=== PATIENT | male | born 1935 | race Caucasian/White ===

== ENCOUNTER 2016-09-03 08:28 | Outpatient (CLI) | payer MEDICARE ==
[2016-09-03 08:52] LABS: #Basophils 0.1 thou/uL (0.0-0.2); #Eosinphils 0.3 thou/uL (0.0-0.7); #Monocytes 0.7 thou/uL (0.11-0.59); #Neutrophils 6.9 thou/uL (1.40-6.50); %Basophils 0.9 % (0.0-1.0); %Eosinophils 2.7 % (0.0-10.0); %Monocytes 6.7 % (0.0-10.0); %Neutrophils 62.7 % (42.0-75.0); Hemoglobin 14.6 g/dL (14.0-18.0); Mean Corpuscular HGB CONC 33.4 g/dL (32.0-36.0); Mean Corpuscular Hemoglobin 33.6 pg (27.0-31.0); Mean Corpuscular Volume 100.7 fl (80.0-94.0); Mean Platelet Volume 6.5 fL (7.4-10.4); Platelet Count 151 thou/uL (130-400); RBC Distribution Width 12.2 % (11.5-14.5); Red Blood Cell (RBC) Count 4.33 mill/uL (4.70-6.10)
[2016-09-03 09:03] LABS: Hemoglobin A1c 5.3 % (4.0-6.0)
[2016-09-03 09:18] LABS: ALT (SGPT) 43 U/L (8-55); AST (SGOT) 37 U/L (5-34); Alkaline Phosphatase 66 U/L (40-150); Anion Gap 14 mmol/L (10-20); BUN (Urea Nitrogen) 26 mg/dL (8.4-25.7); Bilirubin, Total 0.8 mg/dL (0.2-1.2); Calc. Creatinine Clearance 0 mL/min (70-130); Calcium 8.7 mg/dL (7.8-10.44); Carbon Dioxide 26 mmol/L (23-31); Cardiac Risk 2.3 (Less than 4.5); Chloride 108 mmol/L (98-107); Cholesterol 145 mg/dl (< 200 Desired); Estimated GFR-MDRD 74; Globulin 2.7 g/dL (2.4-3.5); Glucose 97 mg/dL (83-110); HDL Cholesterol 63 mg/dL (>60 Neg Risk); LDL Cholesterol, Calculated 56 mg/dL; Potassium 3.9 mmol/L (3.5-5.1); Protein, Total 6.7 g/dL (5.8-8.1); Sodium 144 mmol/L (136-145); Triglycerides 132 mg/dL (Less than 150)
== END 2016-09-03 08:29 | disposition home or self-care (01) ==
LOC: MADLAB 08:28
PROVIDERS: ATTEND Internal Medicine
DX: G45.9 Transient cerebral ischemic attack, unspecified (principal); R21 Rash and other nonspecific skin eruption
CPT/HCPCS: 36415; 80053; 80061; 83036; 85025; 85652

== ENCOUNTER 2017-03-20 20:57 | Emergency (ER) | payer MEDICARE ==
--- NOTE | 2017-03-20 21:46 | CT ---
EXAM: NONCONTRAST HEAD CT 03/20/17 HISTORY: Patient fell and was found down. Posttraumatic injury and pain. COMPARISON: None. TECHNIQUE: Noncontrast head CT is performed in the axial plane. Reformatted images are submitted for interpretat ion. FINDINGS: No parenchymal hemorrhage. No extra-axial hematoma. No midline shift. Basilar cisterns are patent. Age appropriate atrophy. Cortical coles-white matter differentiation is preserved. The ventricles and sulci are patent and symmetric. Chronic small vessel ischemic changes of the white matter are noted. Adequate aeration of the sinuses and mastoid air cells. Calvarium is intact. 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 IMPRESSION: 1. No intracranial posttraumatic sequela. 2. Age appropriate atrophy. 3. Chronic small vessel ischemic change of the white matter. POS: [facility]
[2017-03-20 21:48] LABS: #Basophils 0.1 thou/uL (0.0-0.2); #Eosinphils 0.2 thou/uL (0.0-0.7); #Lymphocytes 2.4 thou/uL (1.20-3.40); #Monocytes 0.5 thou/uL (0.11-0.59); %Basophils 1.4 % (0.0-1.0); %Eosinophils 3.1 % (0.0-10.0); %Lymphocytes 38.9 % (21.0-51.0); %Monocytes 8.4 % (0.0-10.0); %Neutrophils 48.2 % (42.0-75.0); Hemoglobin 12.6 g/dL (14.0-18.0); Mean Corpuscular HGB CONC 34.1 g/dL (32.0-36.0); Mean Corpuscular Hemoglobin 33.4 pg (27.0-31.0); Mean Corpuscular Volume 98.2 fl (80.0-94.0); Mean Platelet Volume 6.1 fL (7.4-10.4); Platelet Count 135 thou/uL (130-400); RBC Distribution Width 11.2 % (11.5-14.5); Red Blood Cell (RBC) Count 3.77 mill/uL (4.70-6.10); White Blood Cell (WBC) Count 6.2 thou/uL (4.8-10.8)
[2017-03-20 21:54] LABS: INR-International Normal Ratio 2.1; Prothrombin Time 24.6 SEC (12.0-14.7)
[2017-03-20 21:55] LABS: PTT 42.8 SEC (22.9-36.1)
[2017-03-20 22:05] LABS: CKMB 2.2 ng/mL (0-6.6); Troponin I Less than 0.010 ng/mL (< 0.028)
--- NOTE | 2017-03-20 22:08 | CT ---
EXAM: CT CERVICAL SPINE WITHOUT CONTRAST 03/20/17 HISTORY: Fall. Posttraumatic pain. COMPARISON: None. TECHNIQUE: CT cervical spine is performed without contrast. TECHNIQUE: CT cervical spine is performed without contrast. Reformatted images are submitted for interpretation. FINDINGS: No prevertebral soft tissue swelling. The visualized soft tissue neck structures are unremarkable. Th ere is a stent in the right internal carotid artery. Varying degrees of central canal stenosis and foraminal narrowing on the basis of degenerative change . Evaluation is limited by technique. Upper mediastinum and apices are unremarkable. There is appropriate alignment of the lateral masses of C1 and C2 as well as the intra-articular face ts. Odontoid process is intact. On the sagittal reformatted images, Mild straightening of the normal cervical lordosis. Grade I retro listhesis of C3 upon C4 likely on the basis of degenerative change. Mild facet hypertrophy is noted, throughout the cervical spine. Cervical spine vertebral body height is maintained. No fracture. IMPRESSION: No fracture. POS: [facility]
== END 2017-03-20 22:00 | disposition home or self-care (01) ==
LOC: MADERS 20:57
DX: S06.0X9A Concussion with loss of consciousness of unspecified duration, initial encounter (principal); E78.5 Hyperlipidemia, unspecified; I25.10 Atherosclerotic heart disease of native coronary artery without angina pectoris; I10 Essential (primary) hypertension; Z79.82 Long term (current) use of aspirin; Z79.899 Other long term (current) drug therapy; W01.10XA Fall on same level from slipping, tripping and stumbling with subsequent striking against unspecified object, initial encounter
CPT/HCPCS: 36415; 70450; 72125; 82553; 84484; 85025; 85610; 85730

== ENCOUNTER 2018-01-17 10:39 | Emergency (ER) | payer MEDICARE ==
[2018-01-17 11:51] LABS: #Basophils 0.1 thou/uL (0.0-0.2); #Eosinphils 0.2 thou/uL (0.0-0.7); #Lymphocytes 2.4 thou/uL (1.20-3.40); #Monocytes 0.7 thou/uL (0.11-0.59); %Basophils 0.7 % (0.0-1.0); %Eosinophils 1.6 % (0.0-10.0); %Lymphocytes 25.7 % (21.0-51.0); %Monocytes 7.9 % (0.0-10.0); %Neutrophils 64.1 % (42.0-75.0); Hemoglobin 14.3 g/dL (14.0-18.0); Mean Corpuscular HGB CONC 34.4 g/dL (32.0-36.0); Mean Corpuscular Hemoglobin 32.9 pg (27.0-31.0); Mean Corpuscular Volume 95.6 fL (78.0-98.0); Mean Platelet Volume 7.1 fL (7.4-10.4); Platelet Count 156 thou/uL (130-400); RBC Distribution Width 11.5 % (11.5-14.5); Red Blood Cell (RBC) Count 4.36 mill/uL (4.70-6.10); White Blood Cell (WBC) Count 9.3 thou/uL (4.8-10.8)
[2018-01-17 12:05] LABS: ALT (SGPT) 20 U/L (8-55); AST (SGOT) 23 U/L (5-34); Albumin 4.3 g/dL (3.4-4.8); Alkaline Phosphatase 76 U/L (40-150); Anion Gap 13 mmol/L (10-20); BUN (Urea Nitrogen) 18 mg/dL (8.4-25.7); Bilirubin, Total 0.6 mg/dL (0.2-1.2); CK (CPK) 216 U/L (30-200); Calc. Creatinine Clearance 0 mL/min (70-130); Calcium 9.1 mg/dL (7.8-10.44); Carbon Dioxide 25 mmol/L (23-31); Chloride 108 mmol/L (98-107); Estimated GFR-MDRD 69; Globulin 2.7 g/dL (2.4-3.5); Glucose 113 mg/dL (83-110); Potassium 4.1 mmol/L (3.5-5.1); Sodium 142 mmol/L (136-145)
[2018-01-17 12:07] LABS: CKMB 5.3 ng/mL (0-6.6); Troponin I Less than 0.010 ng/mL (< 0.028)
[2018-01-17] MEDS ORDERED: Morphine 4 MG/ML VIAL ONE (12:53)
[2018-01-17] MEDS ORDERED: Ondansetron PF 4 MG/2 ML Vial ONE (12:54)
--- NOTE | 2018-01-17 13:28 | CT ---
CT OF BRAIN PERFORMED WITHOUT CONTRAST ENHANCEMENT: HISTORY: Fall hitting head. COMPARISON: A 03/20/2017 study. FINDINGS: There is generalized ventricular and sulcal prominence. There is decreased attenuation in the perive ntricular white matter consistent with some chronic ischemic white matter change. There are no signs of intracerebral hemorrhage or extraaxial fluid collections. Mastoid air cells are clear. There is a small air fluid level within the left maxillary sinus. IMPRESSION: No acute intracranial abnormalities. POS: [facility]
--- NOTE | 2018-01-17 14:03 | RAD ---
AP PELVIS: HISTORY: Pelvic pain status post fall. FINDINGS: The top of the iliac crest is not included on this film. SI joints are symmetric. No diastasis of t he symphysis. 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 No fractures of the bony pelvic ring. IMPRESSION: No evidence of fracture. POS: [facility]
--- NOTE | 2018-01-17 14:27 | RAD ---
LEFT HIP 2 VIEWS: HISTORY: Injury, left hip pain. FINDINGS/IMPRESSION: Degenerative changes are present. No acute fracture or dislocation is identified. POS: [facility]
--- NOTE | 2018-01-17 14:33 | RAD ---
LEFT RIBS AND PA CHEST 4 VIEWS: HISTORY: Rib injury. FINDINGS: Heart size is within normal limits. A pacemaker is present. The lungs are clear of any infiltrative process. No pneumothorax identified. I do not visualize any acute rib fractures. IMPRESSION: No acute findings. POS: [facility]
== END 2018-01-17 16:15 | disposition short-term general hospital (02) ==
LOC: MADERS 10:39
DX: S70.02XA Contusion of left hip, initial encounter (principal); S20.212A Contusion of left front wall of thorax, initial encounter; R55 Syncope and collapse; Z79.01 Long term (current) use of anticoagulants; Z79.899 Other long term (current) drug therapy; W18.2XXA Fall in (into) shower or empty bathtub, initial encounter; Y92.002 Bathroom of unspecified non-institutional (private) residence as the place of occurrence of the external cause; Z79.82 Long term (current) use of aspirin
CPT/HCPCS: 70450; 72170; 80053; 82553; 84484; 85025; 93005; 96374; 96375; J2270; J2405

== ENCOUNTER 2018-07-11 08:16 | Emergency (ER) | payer MEDICARE ==
[2018-07-11] MEDS ORDERED: Cephalexin 500 MG CAP ONE (08:40)
[2018-07-11] MEDS ORDERED: Adacel (T-DAP) 0.5 ML SYRINGE ONE (08:40)
[2018-07-11] MEDS ORDERED: Lidocaine 1% w/Epinephrine 1:100K 20 ML VIAL ONE (08:40)
== END 2018-07-11 09:20 | disposition home or self-care (01) ==
LOC: MADERS 08:16
DX: S51.811A Laceration without foreign body of right forearm, initial encounter (principal); E78.00 Pure hypercholesterolemia, unspecified; I48.91 Unspecified atrial fibrillation; I25.10 Atherosclerotic heart disease of native coronary artery without angina pectoris; Z79.899 Other long term (current) drug therapy; Z79.01 Long term (current) use of anticoagulants; Z79.82 Long term (current) use of aspirin; W26.8XXA Contact with other sharp object(s), not elsewhere classified, initial encounter
CPT/HCPCS: 12002; 90471; 90715; J2001

== ENCOUNTER 2018-08-10 11:45 | Emergency (ER) | payer MEDICARE ==
--- NOTE | 2018-08-10 12:34 | RAD ---
LEFT KNEE 4 VIEWS: HISTORY: Fall, injury, left knee pain. FINDINGS/IMPRESSION: No acute fracture or dislocation is identified. POS: [facility]
[2018-08-10] MEDS ORDERED: HYDROcodone/Acetaminophen 5/325 mg Tablet ONE (13:20)
[2018-08-10] MEDS ORDERED: Acetaminophen 325 MG TAB ONE (13:20)
== END 2018-08-10 13:45 | disposition home or self-care (01) ==
LOC: MADERS 11:45
DX: S86.812A Strain of other muscle(s) and tendon(s) at lower leg level, left leg, initial encounter (principal); Z79.01 Long term (current) use of anticoagulants; Z79.82 Long term (current) use of aspirin; Z79.899 Other long term (current) drug therapy; Z79.1 Long term (current) use of non-steroidal anti-inflammatories (NSAID); W18.30XA Fall on same level, unspecified, initial encounter

== ENCOUNTER 2019-10-30 11:54 | Emergency (ER) | payer MEDICARE ==
[~2019-10-30 11:54] MED LIST: Sodium Chloride 0.9% 1,000 ML BAG ONE
--- NOTE | 2019-10-30 12:48 | RAD ---
Exam: Chest one view HISTORY:Fever Comparison: 10/15/2015 FINDINGS: Cardiac silhouette:Upper normal cardiac silhouette. Stable left-sided transvenous pacemaker. Limited evaluation of lead position due to under penetration Aorta: Atherosclerosis Pulmonary vessels: Slightly prominent Costophrenic angles: Clear LUNGS: Diminished lung volumes due to poor inspiratory effort. Accentuation the parenchyma may be due to hypoventilation. Edema or infiltrate cannot be excluded. Pneumothorax: None Osseous abnormalities: None IMPRESSION: As above
[2019-10-30 12:58] LABS: CRP (Inflammatory) 12.66 mg/dL (= or < 0.5)
[2019-10-30 13:00] LABS: ALT (SGPT) 15 U/L (8-55); AST (SGOT) 35 U/L (5-34); Albumin 3.8 g/dL (3.4-4.8); Alkaline Phosphatase 65 U/L (40-110); Anion Gap 17 mmol/L (10-20); BUN (Urea Nitrogen) 28 mg/dL (8.4-25.7); Bilirubin, Total 0.8 mg/dL (0.2-1.2); Calc. Creatinine Clearance 0 mL/min (70-130); Calcium 8.2 mg/dL (7.8-10.44); Carbon Dioxide 22 mmol/L (23-31); Chloride 104 mmol/L (98-107); Estimated GFR-MDRD 59; Globulin 2.8 g/dL (2.4-3.5); Glucose 66 mg/dL (83-110); Potassium 3.8 mmol/L (3.5-5.1); Protein, Total 6.6 g/dL (5.8-8.1); Sodium 139 mmol/L (136-145)
[2019-10-30 13:03] LABS: Band 1 % (5-11); Hemoglobin 13.8 g/dL (14.0-18.0); Lymphocytes 10 % (21-51); MDiff Complete? YES; Mean Corpuscular HGB CONC 32.4 g/dL (32.0-36.0); Mean Corpuscular Hemoglobin 31.3 pg (27.0-31.0); Mean Corpuscular Volume 96.8 fL (78.0-98.0); Mean Platelet Volume 7.7 fL (7.4-10.4); Monocytes 3 % (0-10); Neutrophil 74 % (42-75); Platelet Count 150 thou/uL (130-400); Platelet Morphology Comment Appears Adequate; RBC Distribution Width 11.6 % (11.5-14.5); RBC Morphology Normal; Reactive Lymphocytes 12 % (0-10); White Blood Cell (WBC) Count 12.7 thou/uL (4.8-10.8)
--- NOTE | 2019-10-30 13:20 | CT ---
Exam: Head CT without contrast HISTORY: Fever. COMPARISON: 01/17/2018 FINDINGS: Hemorrhage: No intraparenchymal hemorrhage or extra-axial hematoma. Brain parenchyma: Cortical coles-white matter differentiation is preserved. No mass effect or midline shift. Basilar cisterns are patent.Chronic small vessel ischemic changes of the white matter Ventricular system: Ventricles and sulci are patent and symmetric. Calvarium: Intact. Sinuses and mastoid air cells: Minimal mucosal thickening of the ethmoid air cells IMPRESSION: No acute intracranial process.
[2019-10-30] MEDS ORDERED: Sodium Chloride 0.9% 100 ML ONE (13:40)
[2019-10-30] MEDS ORDERED: cefTRIAXone\\ROCEPHIN 2 GM VIAL ONE (13:40)
[2019-10-30 13:42] LABS: Bilirubin Negative (Negative); Blood, Urine Trace (Negative); Clarity Cloudy (Clear); Glucose, Urine (Dipstick) Negative (Negative); Ketone, Urine Negative (Negative); Leukocyte Moderate (Negative); Nitrite Negative (Negative); Protein, Urine (Dipstick) 100 mg/dL (Neg-Trace); Urobilinogen 0.2 mg/dL (Less than 2); pH, Urine 7.5 (5.0-9.0)
[2019-10-30 13:44] LABS: WBC/HPF Greater Than 50 HPF (0-3)
[2019-10-30 13:45] LABS: Bacteria/HPF 3+ HPF (None Seen); Squamous Epithelial 0-3 HPF (0-3); Triple Phosphate Crystal 3+ HPF (None Seen)
== END 2019-10-30 14:50 | disposition home or self-care (01) ==
LOC: MADERS 11:54
DX: N10 Acute pyelonephritis (principal); N13.9 Obstructive and reflux uropathy, unspecified; E78.5 Hyperlipidemia, unspecified; E78.00 Pure hypercholesterolemia, unspecified; Z86.73 Personal history of transient ischemic attack (TIA), and cerebral infarction without residual deficits; Z79.82 Long term (current) use of aspirin; Z79.899 Other long term (current) drug therapy
CPT/HCPCS: 70450; 71045; 80053; 81003; 81015; 82550; 83605; 85025; 86140; 87077; 87086; 87186; 93005; 96365; J0696; J3490; J7050

== ENCOUNTER 2020-12-21 14:02 | Emergency (ER) | payer MEDICARE ==
[2020-12-21] MEDS ORDERED: traMADol HCl 50 MG TAB ONE (15:07)
== END 2020-12-21 16:03 | disposition home or self-care (01) ==
LOC: MADERS 14:02
DX: S93.401A Sprain of unspecified ligament of right ankle, initial encounter (principal); M70.41 Prepatellar bursitis, right knee; E78.5 Hyperlipidemia, unspecified; E78.00 Pure hypercholesterolemia, unspecified; I25.10 Atherosclerotic heart disease of native coronary artery without angina pectoris; W19.XXXA Unspecified fall, initial encounter; Z79.82 Long term (current) use of aspirin; Z79.01 Long term (current) use of anticoagulants; Z79.899 Other long term (current) drug therapy; Z86.73 Personal history of transient ischemic attack (TIA), and cerebral infarction without residual deficits; Z86.79 Personal history of other diseases of the circulatory system

== ENCOUNTER 2021-08-20 17:19 | Emergency (ER) | payer MEDICARE ==
[~2021-08-20 17:19] MED LIST changes: +Iopamidol 370 76% 100 ML VIAL ONE; -Sodium Chloride 0.9% 1,000 ML BAG ONE
[2021-08-20 18:11] LABS: #Basophils 0.1 thou/uL (0.0-0.2); #Eosinphils 0.3 thou/uL (0.0-0.7); #Lymphocytes 2.5 thou/uL (1.20-3.40); #Monocytes 0.9 thou/uL (0.11-0.59); #Neutrophils 3.1 thou/uL (1.40-6.50); %Basophils 1.2 % (0.0-1.0); %Eosinophils 4.1 % (0.0-10.0); %Lymphocytes 36.5 % (21.0-51.0); %Neutrophils 45.2 % (42.0-75.0); Hemoglobin 13.5 g/dL (14.0-18.0); Mean Corpuscular HGB CONC 33.3 g/dL (32.0-36.0); Mean Corpuscular Hemoglobin 31.7 pg (27.0-31.0); Mean Corpuscular Volume 95.2 fL (78.0-98.0); Mean Platelet Volume 7.5 fL (7.4-10.4); Platelet Count 137 thou/uL (130-400); RBC Distribution Width 12.2 % (11.5-14.5); Red Blood Cell (RBC) Count 4.24 mill/uL (4.70-6.10); White Blood Cell (WBC) Count 6.9 thou/uL (4.8-10.8)
[2021-08-20 18:21] LABS: PTT 33.2 sec (22.9-36.1); Prothrombin Time 13.4 sec (12.0-14.7)
[2021-08-20 18:23] LABS: ALT (SGPT) 10 U/L (8-55); AST (SGOT) 14 U/L (5-34); Albumin 3.7 g/dL (3.4-4.8); Alkaline Phosphatase 70 U/L (40-110); Anion Gap 15 mmol/L (10-20); BUN (Urea Nitrogen) 17 mg/dL (8.4-25.7); Bilirubin, Total 0.5 mg/dL (0.2-1.2); Calc. Creatinine Clearance 0 mL/min (70-130); Calcium 8.7 mg/dL (7.8-10.44); Carbon Dioxide 25 mmol/L (23-31); Chloride 106 mmol/L (98-107); Globulin 2.7 g/dL (2.4-3.5); Glucose 94 mg/dL (83-110); Lipase 53 U/L (8-78); Magnesium 2.2 mg/dL (1.6-2.6); Potassium 3.8 mmol/L (3.5-5.1); Protein, Total 6.4 g/dL (5.8-8.1); Sodium 142 mmol/L (136-145)
[2021-08-20 18:24] LABS: D-Dimer Test 0.55 *mcg/mL (0.27-0.43)
[2021-08-20 18:25] LABS: CKMB 1.4 ng/mL (0-6.6)
[2021-08-20 21:20] LABS: Troponin I Less than 0.010 ng/mL (< 0.028)
[2021-08-20] MEDS ORDERED: Nitroglycerin 2% Ointment 1 INCH/1 GM Packet ONE ×2 (22:06→22:08)
[2021-08-20] MEDS ORDERED: Mag-Al Plus 1200 MG/1200 MG/120 MG/30 ML UDCUP ONE (22:06)
[2021-08-20] MEDS ORDERED: Lidocaine Viscous Sol 2% 15 ml UD Cup ONE (22:06)
[2021-08-21 00:43] LABS: Troponin I Less than 0.010 ng/mL (< 0.028)
== END 2021-08-21 08:02 | disposition short-term general hospital (02) ==
LOC: MADERS 17:19
DX: R07.2 Precordial pain (principal); R10.13 Epigastric pain; E78.5 Hyperlipidemia, unspecified; Z79.899 Other long term (current) drug therapy
CPT/HCPCS: 71045; 74177; 80053; 82553; 83690; 83735; 83880; 84484; 85025; 85379; 85610; 85730; 93005; Q9967

== ENCOUNTER 2022-04-01 07:33 | Emergency (ER) | payer MEDICARE ==
[2022-04-01] MEDS ORDERED: Acetaminophen 500 MG TAB ONE (09:02)
[2022-04-01 09:47] LABS: SARS-CoV-2 NAA Rapid Test DETECTED (NotDetected)
[2022-04-01] MEDS ORDERED: Dexamethasone 10 MG/ML VIAL ONE (10:09)
== END 2022-04-01 10:40 | disposition home or self-care (01) ==
LOC: MADERS 07:33
DX: U07.1 COVID-19 (principal); R42 Dizziness and giddiness; E78.00 Pure hypercholesterolemia, unspecified; Z86.73 Personal history of transient ischemic attack (TIA), and cerebral infarction without residual deficits; Z79.82 Long term (current) use of aspirin
CPT/HCPCS: 0241U; 71045; 87804 ×2; 96372; 99283; J1100

== ENCOUNTER 2022-05-03 08:56 | Emergency (ER) | payer MEDICARE ==
[2022-05-03] MEDS ORDERED: Iopamidol 370 76% 100 ML VIAL ONE (09:09)
[2022-05-03] MEDS ORDERED: Sodium Chloride 0.9% 1,000 ML ONE ×2 (09:39→09:40)
[2022-05-03] MEDS ORDERED: Pantoprazole 40 MG VIAL ONE (09:40)
[2022-05-03] MEDS ORDERED: Ondansetron PF 4 MG/2 ML Vial ONE ×2 (09:41→10:59)
[2022-05-03 10:22] LABS: #Basophils 0.1 thou/uL (0.0-0.2); #Eosinphils 0.1 thou/uL (0.0-0.7); #Lymphocytes 2.4 thou/uL (1.20-3.40); #Monocytes 1.3 thou/uL (0.11-0.59); #Neutrophils 12.6 thou/uL (1.40-6.50); %Basophils 0.5 % (0.0-1.0); %Eosinophils 0.5 % (0.0-10.0); %Lymphocytes 14.3 % (21.0-51.0); %Monocytes 8.1 % (0.0-10.0); %Neutrophils 76.7 % (42.0-75.0); Hemoglobin 15.6 g/dL (14.0-18.0); Mean Corpuscular Hemoglobin 33.1 pg (27.0-31.0); Mean Corpuscular Volume 94.4 fl (78.0-98.0); Mean Platelet Volume 7.6 fL (7.4-10.4); Platelet Count 170 10x3/uL (130-400); RBC Distribution Width 12.1 % (11.5-14.5); Red Blood Cell (RBC) Count 4.72 mill/uL (4.70-6.10); White Blood Cell (WBC) Count 16.4 10x3/uL (4.8-10.8)
[2022-05-03 10:39] LABS: ALT (SGPT) 7 U/L (8-55); AST (SGOT) 16 U/L (5-34); Albumin 4.4 g/dL (3.4-4.8); Alkaline Phosphatase 93 U/L (40-110); Anion Gap 15 mmol/L (10-20); BUN (Urea Nitrogen) 13 mg/dL (8.4-25.7); CK (CPK) 55 U/L (30-200); Calc. Creatinine Clearance 0 mL/min (70-130); Calcium 9.6 mg/dL (7.8-10.44); Carbon Dioxide 26 mmol/L (23-31); Chloride 102 mmol/L (98-107); Estimated GFR 74; Globulin 2.8 g/dL (2.4-3.5); Glucose 119 mg/dL (83-110); Lipase 33 U/L (8-78); Potassium 3.9 mmol/L (3.5-5.1); Protein, Total 7.2 g/dL (5.8-8.1); Sodium 139 mmol/L (136-145)
[2022-05-03] MEDS ORDERED: Morphine 4 MG/ML VIAL ONE (10:59)
[2022-05-03 11:02] LABS: Bilirubin Negative (Negative); Blood, Urine Negative (Negative); Clarity Cloudy (Clear); Glucose, Urine (Dipstick) Negative (Negative); Ketone, Urine Trace mg/dL (Negative); Leukocyte Small (Negative); Nitrite Negative (Negative); Protein, Urine (Dipstick) 30 mg/dL (Neg-Trace); Specific Gravity, Urine 1.025 (1.005-1.030); Urobilinogen 0.2 mg/dL (Less than 2)
[2022-05-03 11:03] LABS: Bacteria/HPF 2+ HPF (None Seen); RBC/HPF 0-3 HPF (0-3); Squamous Epithelial 0-3 HPF (0-3); WBC/HPF 21-50 HPF (0-3)
[2022-05-03] MEDS ORDERED: cefTRIAXone\\ROCEPHIN 1 GM VIAL ONE (11:35)
[2022-05-03] MEDS ORDERED: Sodium Chloride 0.9% 100 ML ONE (11:35)
[2022-05-03] MEDS ORDERED: cloNIDine 0.1mg/24 Hour PATCH ONE (11:50)
[2022-05-03] MEDS ORDERED: Bisacodyl 10 MG SUPP ONE (11:50)
[2022-05-03] MEDS ORDERED: cloNIDine 0.1 MG TAB ONE (11:51)
== END 2022-05-03 13:13 | disposition home or self-care (01) ==
LOC: MADERS 08:56
DX: K59.00 Constipation, unspecified (principal); I10 Essential (primary) hypertension; N39.0 Urinary tract infection, site not specified; D72.829 Elevated white blood cell count, unspecified; E78.00 Pure hypercholesterolemia, unspecified; Z86.73 Personal history of transient ischemic attack (TIA), and cerebral infarction without residual deficits; Z79.82 Long term (current) use of aspirin
CPT/HCPCS: 71045; 74177; 80053; 81003; 81015; 82274; 82550; 83690; 84443; 84484; 85025; 87086; 93005; 94760; 96361; 96374; 96375; 96376; C9113; J0696; J2270; J2405; J3490; J7050; Q9967

== ENCOUNTER 2022-11-24 14:23 | Emergency (ER) | payer MEDICARE ==
[2022-11-24 15:21] LABS: Bilirubin Negative (Negative); Blood, Urine Negative (Negative); Clarity Clear (Clear); Glucose, Urine (Dipstick) Negative (Negative); Ketone, Urine Negative (Negative); Leukocyte Negative (Negative); Nitrite Negative (Negative); Protein, Urine (Dipstick) Trace mg/dL (Neg-Trace); Specific Gravity, Urine 1.015 (1.005-1.030); Urobilinogen 0.2 mg/dL (Less than 2); pH, Urine 7.5 (5.0-9.0)
[2022-11-24 15:28] LABS: Bacteria/HPF Rare-Few HPF (None Seen); CAUTI Indications for Culture Dysuria,urgency,freq; RBC/HPF 0-3 HPF (0-3); Squamous Epithelial 0-3 HPF (0-3); Urine Culture Reflex No No; WBC/HPF None Seen HPF (0-3)
[2022-11-24 15:32] LABS: Amphetamine Not Detected (NotDetected); Barbiturates Screen Not Detected (NotDetected); Benzodiazepine Screen Not Detected (NotDetected); Cocaine Metabolite Screen Not Detected (NotDetected); Methadone Not Detected (NotDetected); Methamphetamine Not Detected (NotDetected); Opiate Screen Not Detected (NotDetected); Oxycodone Screen Not Detected (NotDetected); Phencyclidine (PCP) Not Detected (NotDetected); THC/Cannabinoid Screen Not Detected (NotDetected); Tricyclic Screen Not Detected (NotDetected)
[2022-11-24 15:34] LABS: ALT (SGPT) 15 U/L (8-55); AST (SGOT) 16 U/L (5-34); Acetaminophen Less than 10 mcg/mL (10.0-30.0); Alcohol Less than 10.0 mg/dL (Less than 10); Alkaline Phosphatase 96 U/L (40-110); Anion Gap 16 mmol/L (10-20); BUN (Urea Nitrogen) 24 mg/dL (8.4-25.7); Bilirubin, Total 0.2 mg/dL (0.2-1.2); Calc. Creatinine Clearance 0 mL/min (70-130); Calcium 9.1 mg/dL (7.8-10.44); Carbon Dioxide 29 mmol/L (23-31); Chloride 102 mmol/L (98-107); Estimated GFR 33; Glucose 108 mg/dL (83-110); Potassium 4.6 mmol/L (3.5-5.1); Salicylate Less than 8.0 mg/dL (15.0-30.0); Sodium 142 mmol/L (136-145)
[2022-11-24 15:43] LABS: #Basophils 0.1 thou/uL (0.0-0.2); #Eosinphils 0.3 thou/uL (0.0-0.7); #Monocytes 0.9 thou/uL (0.11-0.59); #Neutrophils 4.9 thou/uL (1.40-6.50); %Basophils 1.2 % (0.0-1.0); %Eosinophils 3.1 % (0.0-10.0); %Lymphocytes 25.1 % (21.0-51.0); %Monocytes 10.6 % (0.0-10.0); Hematocrit 31.3 % (42.0-52.0); Mean Corpuscular Hemoglobin 35.3 pg (27.0-31.0); Mean Corpuscular Volume 100.9 fl (78.0-98.0); Mean Platelet Volume 8.3 fL (7.4-10.4); Platelet Count 169 10x3/uL (130-400); RBC Distribution Width 12.8 % (11.5-14.5); White Blood Cell (WBC) Count 8.1 10x3/uL (4.8-10.8)
[2022-11-24 15:54] LABS: Macrocytosis SLIGHT = 6-15 cells (100X) (0-5/hpf)
== END 2022-11-24 20:31 ==
LOC: MADERS 14:23
DX: F43.21 Adjustment disorder with depressed mood (principal); F03.90 Unspecified dementia, unspecified severity, without behavioral disturbance, psychotic disturbance, mood disturbance, and anxiety; E78.00 Pure hypercholesterolemia, unspecified; Z79.899 Other long term (current) drug therapy
CPT/HCPCS: 80053; 80306; 80307; 81001; 84443; 85025; 93005

== ENCOUNTER 2022-12-19 01:01 | Emergency (ER) | payer MEDICARE ==
[2022-12-19 01:25] LABS: #Basophils 0.1 thou/uL (0.0-0.2); #Eosinphils 0.2 thou/uL (0.0-0.7); #Lymphocytes 2.3 thou/uL (1.20-3.40); #Monocytes 0.8 thou/uL (0.11-0.59); #Neutrophils 3.7 thou/uL (1.40-6.50); %Basophils 0.7 % (0.0-1.0); %Eosinophils 3.5 % (0.0-10.0); %Lymphocytes 32.1 % (21.0-51.0); %Monocytes 11.4 % (0.0-10.0); %Neutrophils 52.3 % (42.0-75.0); Hematocrit 30.8 % (42.0-52.0); Hemoglobin 10.6 g/dL (14.0-18.0); Mean Corpuscular HGB CONC 34.4 g/dL (32.0-36.0); Mean Corpuscular Hemoglobin 35.3 pg (27.0-31.0); Mean Corpuscular Volume 102.7 fl (78.0-98.0); Mean Platelet Volume 7.6 fL (7.4-10.4); Platelet Count 154 10x3/uL (130-400); RBC Distribution Width 12.4 % (11.5-14.5)
[2022-12-19 01:35] LABS: PTT 27.9 sec (22.9-36.1); Prothrombin Time 13.9 sec (12.0-14.7)
[2022-12-19 01:43] LABS: ALT (SGPT) 12 U/L (8-55); AST (SGOT) 14 U/L (5-34); Albumin 3.7 g/dL (3.4-4.8); Alkaline Phosphatase 80 U/L (40-110); Anion Gap 17 mmol/L (10-20); BUN (Urea Nitrogen) 31 mg/dL (8.4-25.7); Bilirubin, Total 0.3 mg/dL (0.2-1.2); Calc. Creatinine Clearance 0 mL/min (70-130); Calcium 8.7 mg/dL (7.8-10.44); Carbon Dioxide 25 mmol/L (23-31); Chloride 104 mmol/L (98-107); Estimated GFR 29; Globulin 2.6 g/dL (2.4-3.5); Glucose 95 mg/dL (83-110); Potassium 3.6 mmol/L (3.5-5.1); Protein, Total 6.3 g/dL (5.8-8.1); Sodium 142 mmol/L (136-145)
[2022-12-19] MEDS ORDERED: fentaNYL 50 mcg/mL 1 mL Vial ONE (01:58)
[2022-12-19 02:47] LABS: Bilirubin Negative (Negative); Blood, Urine Negative (Negative); Clarity Clear (Clear); Glucose, Urine (Dipstick) Negative (Negative); Ketone, Urine Negative (Negative); Leukocyte Negative (Negative); Nitrite Negative (Negative); Protein, Urine (Dipstick) Trace mg/dL (Neg-Trace); Specific Gravity, Urine 1.015 (1.005-1.030)
[2022-12-19 03:00] LABS: CAUTI Indications for Culture Acute Hematuria; RBC/HPF None Seen HPF (0-3); Squamous Epithelial 0-3 HPF (0-3); WBC/HPF None Seen HPF (0-3)
[2022-12-19 03:01] LABS: Urine Culture Reflex No No
[2022-12-19] MEDS ORDERED: Lactated Ringer's 1,000 ML ONE (03:49)
[2022-12-19 04:13] LABS: Troponin I Less than 0.010 ng/mL (< 0.028)
== END 2022-12-19 05:28 | disposition short-term general hospital (02) ==
LOC: MADERS 01:01
DX: S00.03XA Contusion of scalp, initial encounter (principal); R94.31 Abnormal electrocardiogram [ECG] [EKG]; R55 Syncope and collapse; I12.9 Hypertensive chronic kidney disease with stage 1 through stage 4 chronic kidney disease, or unspecified chronic kidney disease; N18.9 Chronic kidney disease, unspecified; E78.00 Pure hypercholesterolemia, unspecified; I48.91 Unspecified atrial fibrillation; E11.22 Type 2 diabetes mellitus with diabetic chronic kidney disease; Z79.82 Long term (current) use of aspirin; Z79.899 Other long term (current) drug therapy; W19.XXXA Unspecified fall, initial encounter
CPT/HCPCS: 36415; 70450; 71045; 72125; 72128; 74177; 80053; 81001; 84484; 85025; 85610; 85730; 93005; 94760; 96361; 96374; G0390; J3010; J7120

== ENCOUNTER 2023-02-02 20:45 | Emergency (ER) | payer MEDICARE, OTHER | END 2023-02-02 22:50 | LOC: MADERS 20:45 | DX: S00.03XA Contusion of scalp, initial encounter (principal); S70.01XA Contusion of right hip, initial encounter; I25.10 Atherosclerotic heart disease of native coronary artery without angina pectoris; E11.22 Type 2 diabetes mellitus with diabetic chronic kidney disease; I12.9 Hypertensive chronic kidney disease with stage 1 through stage 4 chronic kidney disease, or unspecified chronic kidney disease; N18.9 Chronic kidney disease, unspecified; N17.9 Acute kidney failure, unspecified; E78.00 Pure hypercholesterolemia, unspecified; Z79.899 Other long term (current) drug therapy; Z79.82 Long term (current) use of aspirin; W18.39XA Other fall on same level, initial encounter | CPT/HCPCS: 70450 ==

== ENCOUNTER 2023-02-26 22:15 | Emergency (ER) | payer MEDICARE, OTHER ==
[2023-02-26 23:23] LABS: Band 15 % (5-11); Hematocrit 38.1 % (42.0-52.0); Hemoglobin 13.1 g/dL (14.0-18.0); Lymphocytes 5 % (21-51); MDiff Complete? YES; Macrocytosis SLIGHT = 6-15 cells (100X) (0-5/hpf); Mean Corpuscular HGB CONC 34.3 g/dL (32.0-36.0); Mean Corpuscular Hemoglobin 36.2 pg (27.0-31.0); Mean Corpuscular Volume 105.5 fl (78.0-98.0); Mean Platelet Volume 7.9 fL (7.4-10.4); Monocytes 11 % (0-10); Neutrophil 69 % (42-75); Platelet Adequacy Comment Appears Adequate; Platelet Count 139 10x3/uL (130-400); RBC Distribution Width 12.5 % (11.5-14.5); Red Blood Cell (RBC) Count 3.61 mill/uL (4.70-6.10); White Blood Cell (WBC) Count 10.6 10x3/uL (4.8-10.8)
[2023-02-26 23:34] LABS: ALT (SGPT) 34 U/L (8-55); AST (SGOT) 56 U/L (5-34); Albumin 4.2 g/dL (3.4-4.8); Alkaline Phosphatase 76 U/L (40-110); Anion Gap 18 mmol/L (10-20); BUN (Urea Nitrogen) 35 mg/dL (8.4-25.7); Bilirubin, Total 0.7 mg/dL (0.2-1.2); Calc. Creatinine Clearance 0 mL/min (70-130); Calcium 8.8 mg/dL (7.8-10.44); Carbon Dioxide 22 mmol/L (23-31); Chloride 104 mmol/L (98-107); Estimated GFR 28; Globulin 3.2 g/dL (2.4-3.5); Glucose 153 mg/dL (83-110); Potassium 4.3 mmol/L (3.5-5.1); Protein, Total 7.4 g/dL (5.8-8.1); Sodium 140 mmol/L (136-145)
[2023-02-26 23:42] LABS: SARS-CoV-2 NAA Rapid Test DETECTED (NotDetected)
[2023-02-27 00:07] LABS: Bilirubin Negative (Negative); Blood, Urine Trace (Negative); CAUTI Indications for Culture Alt mental st,lethar; Clarity Clear (Clear); Glucose, Urine (Dipstick) Negative (Negative); Ketone, Urine 15 mg/dL (Negative); Leukocyte Negative (Negative); Nitrite Negative (Negative); Protein, Urine (Dipstick) 100 mg/dL (Neg-Trace); RBC/HPF 0-3 HPF (0-3); Squamous Epithelial 0-3 HPF (0-3); WBC/HPF 0-3 HPF (0-3)
[2023-02-27 00:09] LABS: Urine Culture Reflex No No
[2023-02-27] MEDS ORDERED: Sodium Chloride 0.9% 1,000 ML ONE (00:27)
== END 2023-02-27 02:46 | disposition short-term general hospital (02) ==
LOC: MADERS 22:15
DX: U07.1 COVID-19 (principal); N17.9 Acute kidney failure, unspecified; E86.0 Dehydration; E11.22 Type 2 diabetes mellitus with diabetic chronic kidney disease; N18.9 Chronic kidney disease, unspecified; I12.9 Hypertensive chronic kidney disease with stage 1 through stage 4 chronic kidney disease, or unspecified chronic kidney disease; I25.10 Atherosclerotic heart disease of native coronary artery without angina pectoris; E78.00 Pure hypercholesterolemia, unspecified; E11.42 Type 2 diabetes mellitus with diabetic polyneuropathy; Z86.73 Personal history of transient ischemic attack (TIA), and cerebral infarction without residual deficits; Z79.82 Long term (current) use of aspirin; Z79.899 Other long term (current) drug therapy
CPT/HCPCS: 71045; 80053; 81001; 83605; 85025; U0002; 36415; 51701; 96360; J7050

== ENCOUNTER 2023-07-30 16:10 | Emergency (ER) | payer MEDICARE, MEDICAID ==
[2023-07-30 17:38] LABS: ALT (SGPT) 20 U/L (8-55); AST (SGOT) 20 U/L (5-34); Albumin 3.7 g/dL (3.4-4.8); Alkaline Phosphatase 86 U/L (40-110); Anion Gap 15 mmol/L (10-20); BUN (Urea Nitrogen) 21 mg/dL (8.4-25.7); Bilirubin, Total 0.5 mg/dL (0.2-1.2); Calc. Creatinine Clearance 0 mL/min (70-130); Carbon Dioxide 28 mmol/L (23-31); Chloride 103 mmol/L (98-107); Eosinophils 2 % (0-10); Estimated GFR 33; Globulin 2.6 g/dL (2.4-3.5); Glucose 157 mg/dL (83-110); Hematocrit 41.3 % (42.0-52.0); Lymphocytes 8 % (21-51); MDiff Complete? YES; Macrocytosis SLIGHT = 6-15 cells (100X) (0-5/hpf); Magnesium 2.5 mg/dL (1.6-2.6); Manual Diff?? YES; Mean Corpuscular HGB CONC 31.4 g/dL (32.0-36.0); Mean Corpuscular Hemoglobin 32.6 pg (27.0-31.0); Mean Corpuscular Volume 103.8 fl (78.0-98.0); Mean Platelet Volume 5.8 fL (7.4-10.4); Monocytes 6 % (0-10); Neutrophil 76 % (42-75); Platelet Count 155 10x3/uL (130-400); Potassium 5.1 mmol/L (3.5-5.1); Protein, Total 6.3 g/dL (5.8-8.1); RBC Distribution Width 12.7 % (11.5-14.5); Reactive Lymphocytes 8 % (0-10); Red Blood Cell (RBC) Count 3.98 mill/uL (4.70-6.10); Sodium 141 mmol/L (136-145); Troponin I Less than 0.010 ng/mL (< 0.028); White Blood Cell (WBC) Count 11.8 10x3/uL (4.8-10.8)
[2023-07-30 17:40] LABS: Platelet Adequacy Comment Appears Adequate
[2023-07-30] MEDS ORDERED: Sodium Chloride 0.9% 500 ML ONE (17:51)
== END 2023-07-30 19:08 ==
LOC: MADERS 16:10
DX: R55 Syncope and collapse (principal); E86.0 Dehydration; I25.10 Atherosclerotic heart disease of native coronary artery without angina pectoris; F03.90 Unspecified dementia, unspecified severity, without behavioral disturbance, psychotic disturbance, mood disturbance, and anxiety; I48.91 Unspecified atrial fibrillation; E11.42 Type 2 diabetes mellitus with diabetic polyneuropathy; E78.00 Pure hypercholesterolemia, unspecified; I12.9 Hypertensive chronic kidney disease with stage 1 through stage 4 chronic kidney disease, or unspecified chronic kidney disease; E11.22 Type 2 diabetes mellitus with diabetic chronic kidney disease; N18.9 Chronic kidney disease, unspecified; Z95.5 Presence of coronary angioplasty implant and graft; Z86.73 Personal history of transient ischemic attack (TIA), and cerebral infarction without residual deficits; Z79.82 Long term (current) use of aspirin; Z79.899 Other long term (current) drug therapy
CPT/HCPCS: 36415; 71045; 80053; 83735; 83880; 84484; 85025; 93005; J7030